=== PATIENT | male | born 1940 | race Two or more races ===

== ENCOUNTER 2018-03-30 16:05 | Inpatient (IN) | payer OTHER, MEDICAID ==
[~2018-03-30] VITALS: Ht 167.6 cm; Wt 62.0 kg
[2018-03-30 16:19] LABS: BASOPHIL (%) 0.5 % (0-1); BASOPHIL COUNT 0.1 K/uL (0-0.1); EOSINOPHIL (%) 1.2 % (0-5); EOSINOPHIL COUNT 0.2 K/uL (0-0.3); HEMATOCRIT 43.5 % (38.0-50.0); HEMOGLOBIN 15.3 G/DL (12.5-16.6); IMMATURE GRANULOCYTE (%) 0.4 % (0.0-0.7); LYMPHOCYTE (%) 7.7 % (15-42); LYMPHOCYTE COUNT 1.6 K/uL (1.0-2.8); MCHC 35.2 G/DL (30.0-36.0); MCV 88.1 FL (86-99); MONOCYTE (%) 7.8 % (3-12); MONOCYTE COUNT 1.6 K/uL (0-0.8); NEUTROPHIL (%) 82.4 % (45-76); NEUTROPHIL COUNT 16.5 K/uL (1.8-6.4); PLATELET COUNT 262 K/uL (156-360); RBC DIS.WIDTH-CV 12.5 % (11.8-14.6); RED BLOOD COUNT 4.94 M/uL (4.00-5.50); WHITE BLOOD COUNT 20.1 K/uL (4.1-10.2)
[2018-03-30 16:28] LABS: PTT 35.4 SEC (25-37)
[2018-03-30 16:34] LABS: AMYLASE 83 IU/L (1-118); CHLORIDE 112 mEq/L (99-109); SODIUM 147 mEq/L (136-147)
[2018-03-30 16:36] LABS: GLUCOSE 158 mg/dL (70-99)
[2018-03-30 16:39] LABS: SERUM ETHYL ALCOHOL < 10 mg/dL
[2018-03-30 16:40] LABS: CREATININE 1.2 mg/dL (0.6-1.3)
[2018-03-30 16:41] LABS: UREA NITROGEN (BUN) 25 mg/dL (9-23)
[2018-03-30 16:43] LABS: LIPASE 63 U/L (1.0-51.0)
[2018-03-30 16:44] LABS: TROP-I INTERPRETATION NEGATIVE; TROPONIN-I 0.04 ng/mL (0.0-0.30)
[2018-03-30 16:52] LABS: GFR ESTIMATE (CALCULATED) > 59 mL/min/ (58.99-99999)
[2018-03-30 16:57] LABS: APPEARANCE CLEAR ((CLEAR)); BILIRUBIN NEGATIVE; BLOOD SMALL; COLOR AMBER ((YELLOW)); GLUCOSE (STRIP) NEGATIVE; KETONES NEGATIVE; LEUKOCYTES LARGE; NITRITE NEGATIVE; PROTEIN (STRIP) 30; SPECIFIC GRAVITY 1.023 (1.000-1.030); UROBILINOGEN 0.2 MG/DL (0.2-1.0)
[2018-03-30 17:01] LABS: BACTERIA RARE /HPF; EPITHELIAL CELLS NONE SEEN /HPF; HYALINE CASTS 0-5 /LPF; MUCUS TRACE /LPF; RED BLOOD CELLS 0-5 /HPF (0-5); UCUL ADDED? YES; WHITE BLOOD CELLS 20-30 /HPF (0-5)
[2018-03-30 17:22] LABS: AMPHETAMINE NEGATIVE (500 ng/mL); BARBITURATES NEGATIVE (200 ng/mL); BENZODIAZEPINES NEGATIVE (150 ng/mL); BUPRENORPHINE NEGATIVE (10 ng/mL); COCAINE NEGATIVE (150 ng/mL); METHADONE NEGATIVE (200 ng/mL); METHAMPHETAMINE NEGATIVE (500 ng/mL); OPIATES (MORPHINE) NEGATIVE (100 ng/mL); OXYCODONE NEGATIVE (100 ng/mL); PHENCYCLIDINE NEGATIVE (25 ng/mL); PROPOXYPHENE NEGATIVE (300 ng/mL); THC CANNABINOIDS NEGATIVE (50 ng/mL); TRICYCLIC ANTIDEPRESSANTS PRESUMPTIVE POSITIVE (300 ng/mL)
[2018-03-30] MEDS ORDERED: LISINOPRIL10 MG PO (18:01)
[2018-03-30] MEDS ORDERED: HYDROCORTISONE5 MG PO (18:02)
[2018-03-30] MEDS ORDERED: HYDROCORTISONE10 MG PO (18:04)
[2018-03-30] MEDS ORDERED: ELIQUIS5 MG PO (18:06)
[2018-03-30] MEDS ORDERED: LEVOTHYROXINE25 MCG PO (18:07)
[2018-03-30] MEDS ORDERED: LISINOPRIL20 MG PO (18:09)
[2018-03-30] MEDS ORDERED: NIFEDIPINE ER30 MG PO (18:11)
[2018-03-30] MEDS ORDERED: SERTRALINE HCL100 MG PO (18:17)
[2018-03-30] MEDS ORDERED: QUETIAPINE FUMA50 MG PO (18:18)
[2018-03-30] MEDS ORDERED: RISPERIDONE0.25 MG PO (18:19)
[2018-03-30] MEDS ORDERED: DONEPEZIL HCL10 MG PO (18:20)
[2018-03-30] MEDS ORDERED: MEMANTINE HCL10 MG PO (18:20)
[2018-03-30] MEDS ORDERED: DONEPEZIL HCL5 MG PO (18:20)
[2018-03-30] MEDS ORDERED: CARVEDILOL6.25 MG PO (18:20)
[2018-03-30] MEDS ORDERED: FOLIC ACID1 MG PO (18:23)
[2018-03-30] MEDS ORDERED: VITAMIN B-150 MG PO (18:25)
[2018-03-30] MEDS ORDERED: MELATIN3 MG PO (18:26)
[2018-03-30 20:03] LABS: HDL CHOLESTEROL 29 MG/DL (Desirable>=40); LDL CHOLESTEROL 110 mg/dL (Desirable<100); NON-HDL CHOLESTEROL 140 mg/dL (Desirable<160); TOTAL CHOLESTEROL 169 mg/dL (Desirable<200); TRIGLYCERIDES 151 MG/DL (Normal: <150)
[2018-03-30 21:28] VITALS: BP 186/98
[2018-03-30 23:36] VITALS: BP 182/92
[2018-03-31 04:12] VITALS: BP 174/83
[2018-03-31 07:51] VITALS: BP 152/88
[2018-03-31 08:34] LABS: HEMATOCRIT 39.6 % (38.0-50.0); HEMOGLOBIN 13.6 G/DL (12.5-16.6); MCH 30.6 PG (29.0-34.0); MCHC 34.3 G/DL (30.0-36.0); MCV 89.2 FL (86-99); PLATELET COUNT 207 K/uL (156-360); RBC DIS.WIDTH-CV 12.6 % (11.8-14.6); RED BLOOD COUNT 4.44 M/uL (4.00-5.50); WHITE BLOOD COUNT 18.4 K/uL (4.1-10.2)
[2018-03-31 08:55] LABS: CHLORIDE 118 mEq/L (99-109); POTASSIUM 3.8 mEq/L (3.7-5.4); SODIUM 148 mEq/L (136-147)
[2018-03-31 08:57] LABS: GLUCOSE 129 mg/dL (70-99)
[2018-03-31 09:01] LABS: CREATININE 0.8 mg/dL (0.6-1.3); GFR ESTIMATE (CALCULATED) > 59 mL/min/ (58.99-99999)
[2018-03-31 09:52] LABS: UREA NITROGEN (BUN) 19 mg/dL (9-23)
[2018-03-31 10:17] LABS: HEMOGLOBIN A1c (GLYCOHEMOGLOB) 6.5 % (Below 5.7)
[2018-03-31 13:14] VITALS: BP 166/88
[2018-03-31 20:00] VITALS: BP 180/100
[2018-03-31 23:49] VITALS: BP 164/82
[2018-04-01 03:48] VITALS: BP 148/86
[2018-04-01 06:02] LABS: HEMATOCRIT 39.7 % (38.0-50.0); HEMOGLOBIN 13.2 G/DL (12.5-16.6); MCH 30.1 PG (29.0-34.0); MCHC 33.2 G/DL (30.0-36.0); MCV 90.6 FL (86-99); PLATELET COUNT 242 K/uL (156-360); RBC DIS.WIDTH-CV 12.7 % (11.8-14.6); RBC DIS.WIDTH-SD 42.1 % (39-53); RED BLOOD COUNT 4.38 M/uL (4.00-5.50); WHITE BLOOD COUNT 13.7 K/uL (4.1-10.2)
[2018-04-01 06:22] LABS: CHLORIDE 111 MEQ/L (99-109); CREATININE 0.7 MG/DL (0.6-1.3); GFR ESTIMATE (CALCULATED) > 59 mL/min/ (58.99-99999); GLUCOSE 158 mg/dL (70-99); POTASSIUM 3.4 MEQ/L (3.7-5.4); SODIUM 147 MEQ/L (136-147); UREA NITROGEN (BUN) 13 mg/dL (9-23)
[2018-04-01 07:38] VITALS: BP 179/95
[2018-04-01 16:05] VITALS: BP 122/66
[2018-04-01 19:43] VITALS: BP 152/82
[2018-04-01 23:51] VITALS: BP 105/76
[2018-04-02 03:50] VITALS: BP 138/68
[2018-04-02 05:47] LABS: HEMOGLOBIN 12.6 G/DL (12.5-16.6); MCH 30.4 PG (29.0-34.0); MCHC 34.1 G/DL (30.0-36.0); MCV 89.2 FL (86-99); PLATELET COUNT 221 K/uL (156-360); RBC DIS.WIDTH-CV 12.5 % (11.8-14.6); RBC DIS.WIDTH-SD 40.8 % (39-53); RED BLOOD COUNT 4.15 M/uL (4.00-5.50); WHITE BLOOD COUNT 9.1 K/uL (4.1-10.2)
[2018-04-02 06:14] LABS: CHLORIDE 107 MEQ/L (99-109); CREATININE 0.7 MG/DL (0.6-1.3); GFR ESTIMATE (CALCULATED) > 59 mL/min/ (58.99-99999); GLUCOSE 161 mg/dL (70-99); SODIUM 142 MEQ/L (136-147); UREA NITROGEN (BUN) 11 mg/dL (9-23)
[2018-04-02 06:15] LABS: POTASSIUM 4.1 MEQ/L (3.7-5.4)
[2018-04-02 07:25] VITALS: BP 134/89
[2018-04-02 11:08] VITALS: BP 105/62
[2018-04-02 16:12] VITALS: BP 115/67
[2018-04-02 19:30] VITALS: BP 129/72
[2018-04-03] VITALS: BP 163/75
[2018-04-03 04:00] VITALS: BP 137/66
[2018-04-03 07:49] VITALS: BP 154/88
[2018-04-03 23:54] VITALS: BP 125/76
[2018-04-04 07:15] VITALS: BP 144/68
[2018-04-04 16:48] VITALS: BP 132/68
[2018-04-05 03:58] VITALS: BP 161/83
[2018-04-05 07:46] VITALS: BP 173/90
[2018-04-05 15:00] VITALS: BP 125/75
[2018-04-06 00:53] VITALS: BP 176/89
[2018-04-06 07:54] VITALS: BP 194/101
[2018-04-06 11:00] VITALS: BP 162/80
[2018-04-06 15:53] VITALS: BP 157/94
[2018-04-06 23:51] VITALS: BP 164/86
[2018-04-07 07:48] VITALS: BP 142/98
[2018-04-07] MEDS ORDERED: HYOSCYAMINE0.125 M1 PO (14:03)
[2018-04-07] MEDS ORDERED: LORAZEPAM0.5 MG PO (14:03)
[2018-04-07] MEDS ORDERED: MORPHINE CON20 MG/M1 PO (14:03)
[2018-04-07 15:47] VITALS: BP 140/82
[2018-04-08 00:36] VITALS: BP 168/79
[2018-04-08 07:03] VITALS: BP 176/79
== END 2018-04-08 13:53 | disposition hospice, home (50) | DRG 871 ==
LOC: EME 16:05 → EDOF 18:37 → ENRESERV 18:39 → CANRESERV 19:05 → ENRESERV 19:18 → CANRESERV 19:18 → ENRESERV 19:19 → CANRESERV 19:19 → EDOF 19:24 → 5SOUTH 19:24 → ENRESERV 19:31 → 5SOUTH 20:43 → ENPENDDIS 04-08 09:50 → 5SOUTH 04-08 13:53
PROVIDERS: Emergency Medicine; Hospitalist
DX: A41.9 Sepsis, unspecified organism (principal); G93.40 Encephalopathy, unspecified; N39.0 Urinary tract infection, site not specified; E87.0 Hyperosmolality and hypernatremia; F33.9 Major depressive disorder, recurrent, unspecified; G30.9 Alzheimer's disease, unspecified; F02.80 Dementia in other diseases classified elsewhere, unspecified severity, without behavioral disturbance, psychotic disturbance, mood disturbance, and anxiety; Z51.5 Encounter for palliative care; Z66 Do not resuscitate; I10 Essential (primary) hypertension; E86.0 Dehydration; B95.2 Enterococcus as the cause of diseases classified elsewhere; K11.21 Acute sialoadenitis; E03.9 Hypothyroidism, unspecified; E78.5 Hyperlipidemia, unspecified; E87.6 Hypokalemia; R29.6 Repeated falls; R63.0 Anorexia; Z79.01 Long term (current) use of anticoagulants; Z86.73 Personal history of transient ischemic attack (TIA), and cerebral infarction without residual deficits; Z90.49 Acquired absence of other specified parts of digestive tract; Z68.21 Body mass index [BMI] 21.0-21.9, adult
CPT/HCPCS: 70450; 70490; 70551; 71045; 80048; 80061; 81003; 82140; 82150; 82948; 83036; 83690; 84484; 85025; 85027; 85610; 85730; 86850; 86900; 86901; 87077; 87086; 87186; 92526 GN; 92610 GN; 93005; 93880; 95819; 99281; 99285; G0480; J0360; J0696; J1644; J1956; J2270; J7030; J7042; J7070